=== PATIENT | female | born 1935 | race Caucasian/White ===

== ENCOUNTER 2017-02-22 17:22 | Observation (INO) ==
[2017-02-22] MEDS ORDERED: HYDROcodone/APAP 5/325MG TABLET PO PRN (18:22)
[2017-02-22] MEDS ORDERED: traMADol 50 MG TABLET PO PRN (18:23)
[2017-02-22] MEDS: PREGABALIN 25 MG CAPSULE PO SCH (19:55)
--- NOTE | 2017-02-23 06:30 | History and Physical Report ---
DATE OF ADMISSION: 02/22/2017 This is an admit for observation note. CHIEF COMPLAINT: Right leg pain. HPI: Ms. Amada Stapleton is an 81-year-old woman who was seen today at interventional pain clinic and given a right paramedian lumbar epidural steroid injection. She tolerated the procedure well but postoperatively complained of increased right hip pain exacerbated by movement. She was observed for about 3 hours and it appeared she may have a right hip fracture. PA of the pelvis and right hip was negative for fracture. She was observed further, given additional IV fentanyl and Lyrica for the pain she complained of. She experienced exacerbation of her pain with standing and ambulating and any movement. It became apparent that she needed observation as we will be unable to discharge her to home. ALLERGIES: NONE KNOWN. HOME MEDICATIONS: Tramadol 50 mg 1 every 4 hours as needed. Naproxen 500 mg twice daily. Travatan Z 0.004 percent eye drops. PAST MEDICAL HISTORY: This is remarkable in that the patient has a history of recurrent urinary tract infections and at times had sepsis with confusion, weakness, etc. She also has had some cardiac irregularity in the past and she has a Reveal XT monitor implanted. Her history is also positive for glaucoma, anxiety, and depression as well as some early dementia. PAST SURGICAL HISTORY: Positive for air sampling and monitoring implant, bilateral total knee replacements done approximately 10 years ago, hand surgery. REVIEW OF SYSTEMS: Positive for a history of glaucoma; recurrent bladder, kidney infections; arthritis; osteoporosis; difficulty with walking and balance; anxiety and depression. 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 PHYSICAL EXAM: VITAL SIGNS: She is 5 feet 2, approximately 158. Pulse 82, blood pressure 140/80. CONSTITUTIONAL: She is a pleasant woman, who is well-kept and articulate. She is able to stand and ambulate with a walker with assistance but not independently as before. PSYCHAITRIC: She is alert. She answers questions but has some memory deficits consistent with early onset dementia. ENT: Noncontributory. CHEST: Remarkable in that her lungs are clear to auscultation. CV: Remarkable for faint heart sounds with a regular rhythm. EXTREMITIES: Remarkable for some lower extremity edema. BACK: Her back on exam is negative for scar. Palpation is remarkable for some minor tenderness. Nothing focal. She has some tenderness over the right sciatic notch and left, as well, which is approximately equivalent. Internal and external rotation of the right hip, hip flexion and extension all exacerbate her pain. NEUROLOGIC: Motor examination is remarkable in that plantarflexion dorsiflexion at the ankle is 5/5 bilaterally. Flexion and extension at the knee is somewhat weak on the right compared to the left and this seems associated with pain. She is able to flex her right hip. She has probable 4/5 weakness there also associated with pain. Strength 5/5 on left side. Her deep tendon reflexes are symmetrically diminished. Her sensation is remarkable in that her sensation is symmetric across the anterior and lateral aspects of the upper and lower legs. DIAGNOSTIC STUDIES: She had hip films and AP of the pelvis, which is negative for fracture. IMPRESSION: This is an 81-year-old woman with chronic right leg pain thought to be radiculitis. She had a lumbar epidural steroid injection 3 weeks ago with improvement. A second was done today, and postoperatively, she has complained of some burning right leg pain. She has no severe motor deficits. Over the last 3 hours, this has not been progressive. However, she is unable to stand, ambulate and complains of this pain. PLAN: My plan is to admit her for observation. We started Lyrica 50 mg by mouth twice daily and will continue her tramadol 50 mg every 4 hours. If she has severe pain, add hydrocodone 5/325. She will be reevaluated in a.m. LES:mg Job ID: [id number] Doc ID: [id number] Anthony [facility]
[2017-02-23] MEDS: PREGABALIN 25 MG CAPSULE PO SCH ×3 (08:58→20:41)
[2017-02-23 11:50] LABS: Basophils # (Auto) 0 K/mcL (0.0-0.3); Basophils % (Auto) 0.3 % (0.0-2.0); Eosinophils # (Auto) 0 K/mcL (0.0-0.7); Eosinophils % (Auto) 0.4 % (0.0-7.0); Granulocytes % (Auto) 80.4 % (38.0-78.0); Lymphocytes # (Auto) 0.9 K/mcL (1.5-4.8); Lymphocytes % (Auto) 11.6 % (15.5-49.0); Mean Cell Volume 96.5 fL (80.0-100.0); Mean Corpuscular HGB Conc 34.5 g/dL (31.0-36.0); Mean Corpuscular Hemoglobin 33.3 pg (26.0-34.0); Monocytes # (Auto) 0.6 K/mcL (0.1-0.9); Monocytes % (Auto) 7.3 % (1.0-12.0); Platelet Count 199 K/mcL (140-440); RBC 4.11 M/mcL (4.00-5.20); Red Cell Distribution Width 14.3 % (11.5-14.5)
--- NOTE | 2017-02-23 12:21 | Progress Note ---
DATE OF VISIT 02/23/2017 HISTORY OF PRESENT ILLNESS: The patient continued to have severe pain overnight. She seems to have progressed in that now getting up is extremely difficult. She complains of pain in her right hip and groin, extending down the leg to the knee and some to the medial aspect of the calf. She has been given Lyrica 50 mg last night and this morning. She has received hydrocodone 5/325 mg and Ultram 50 mg. Despite that, she still continues to have pain and it is very difficult to get her up to the bathroom. She is comfortable, or relatively so, lying horizontal. PHYSICAL EXAM: GENERAL: She is comfortable, horizontal, but any attempt to elevate or manipulate her right leg causes significant exacerbation of pain. VITAL SIGNS: Within normal limits with exception of systolic blood pressure in the 170s this morning. EXTREMITIES: Straight leg raise on the right or any manipulation of her right leg exacerbates her pain. She does now have a sensory deficit over the anterior aspect of the right leg and milder deficit over the medial aspect of the villalba on the right compared to the left. Plantar flexion and dorsiflexion at the ankle and dorsiflexion EHL are 5/5. It is difficult to assess at the knee or hip as the pain is exacerbated. DTRs remain symmetrically diminished. IMPRESSION: Right lumbar radiculopathy with marked flare post right paramedian lumbar epidural steroid injection. She has developed a sensory deficit. This warrants MRI investigation. PLAN: 1. My plan is to get a lumbar MRI. The only complication is that she has a Reveal entry level machine operator placed over the left chest, which is MR conditional. I spoke with the MR scale technician who will investigate that and she will likely have an MR later in the day. 2. We will increase her Lyrica to 50 mg t.i.d. 3. She gets confused with #4 tramadol in 24 hours by history, so we will use hydrocodone 5/325 mg 1 q.4h. p.r.n. 4. We will add naproxen 500 mg b.i.d., which she has been on chronically. 5. We will start her travoprost eye drops once per day. 6. She has a history of urinary tract infection in the past and sepsis, so we will get urine analysis, straight cath and culture if appropriate. 7. We will start 50 mL per hour half normal saline IV for some hydration and continue to encourage her to take fluids p.o. 8. We will view her MRI later in the day. LES:emily Job ID: [id number] Doc ID: [id number] Anthony Castaneda MD
[2017-02-23] MEDS: HYDROcodone/APAP 5/325MG TABLET PO PRN ×3 (13:02→20:41)
--- NOTE | 2017-02-23 13:05 | Magnetic Resonance Report ---
CLINICAL INFORMATION: Acute exacerbation of back pain and right L3-4 radiculopathy COMPARISON: None. TECHNIQUE: Sagittal T1 FLAIR, STIR, fast spin echo T2, axial T2 weighted images were acquired. FINDINGS: There is 3 mm of L3 anterior subluxation due to degenerative facet disease. Mild idiopathic levoscoliotic curve is also appreciated. Severe chronic T12 compression fracture is anatomically aligned. No other marrow signal abnormalities. Conus medullaris ends at T12 homogeneous signal. Cauda equina roots are normal. Soft tissues show multiple bilateral parapelvic cysts - more severe on the right The T11-T12 and T12-L1 disc levels are normal. At L1-2, mild broad disc protrusion with right-sided asymmetry, moderate right and mild left facet arthropathy combine to result in severe right L1 IV foraminal narrowing impinging the exiting right L1 nerve root. Mild central canal stenosis. At L2-3, moderate broad disc protrusion with right-sided asymmetry and facet arthropathy result in mild central canal and moderate right IV foraminal narrowing with possible impingement of the exiting right L2 nerve root. At L3-4, moderate broad disc protrusion with right-sided asymmetry, grade 1 spondylolisthesis and facet arthropathy combine to result in severe central canal, right lateral recess and right IV foraminal narrowing with moderate left lateral recess and IV foraminal narrowing. There is marked impingement of the exiting right L3 and descending right L4 nerve roots. There is no evidence of epidural hemorrhage or other complication at this level from recent injection. At L4-5, moderate broad disc spur complex with left-sided asymmetry and facet arthropathy result in moderate central canal, mild bilateral IV foraminal narrowing and moderate right lateral recess narrowing with probable impingement of the descending right L5 nerve root. Slight impingement exiting left L4 nerve root in the IV foramen. No evidence of epidural hemorrhage or other complication at this level from recent injection At L5-S1, moderate broad disc protrusion with left-sided asymmetry and facet arthropathy result in moderate right IV foraminal narrowing and slight impingement exiting right L5 nerve root. Central canal is slightly narrowed. IMPRESSION: 1. Multilevel degenerative change resulting in central canal, lateral recess and IV foramen at the levels described - most severe at L3-4. There is no evidence of hemorrhage or other complication from recent epidural steroid injection. 2. Severe chronic T12 compression fracture - anatomic alignment Interpreted and Authenticated by: Farhad Santoro 02/23/17
--- NOTE | 2017-02-23 13:27 | Progress Note ---
DATE OF VISIT 02/23/2017 The patient had a lumbar MRI and was found to have severe central canal stenosis at L4-L5 with severe neural foraminal stenosis on the right as well. She has severe neural foraminal stenosis at L2-L3 and multiple other findings. There are no signs of epidural hematoma or other trauma evident. Patient was straight cathed for 1400 mL. By history she has had a history of urinary tract infections and sepsis in the past. Her daughter states she has a large bladder capacity and has for years. However, she is uncertain if she has had urinary retention chronically. I discussed with the daughter extensively the fact that this pain is increased and hopefully in the next few days she will improve. We are increasing her Lyrica. We have switched her to hydrocodone. We will rest her bladder with a Potter catheter. I recommended we pursue a surgical consult and she agreed. LES:anthony Job ID: [id number] Doc ID: [id number] Anthony Castaneda MD [facility]
[2017-02-23 13:38] LABS: Appearance,Urine CLEAR; Bacteria,Urine 0 /hpf (0); Bilirubin,Urine NEG (NEG); Color,Urine YELLOW; Glucose,Urine (UA) NEGATIVE (NEG); Leukocyte Esterase,Urine 25 /uL (NEG); Mucus,Urine FEW /hpf (0); Nitrate,Urine NEG (NEG); Protein,Urine NEG (NEG); Urine Blood NEG mg/dL (<0.03); Urine RBC 0 /hpf (0-1); Urine Squamous Epithelial Cell < 1 /hpf (0-4); Urine WBC 9 /hpf (0-4); Urobilinogen,Urine NEG (NEG)
[2017-02-23] MEDS: 0.45 % SODIUM CHLORIDE 1,000 ML IV SCH (15:30)
[2017-02-23] MEDS: NAPROXEN 250 MG TABLET PO SCH (17:06)
[2017-02-23] MEDS: SULFAMETHOXAZOLE/TRIMETHOPRIM 1 TABLET PO SCH (20:41)
[2017-02-23] MEDS ORDERED: TRAVOPROST OPHTH DROPS BOTTLE 2.5ML OD SCH (21:00)
[2017-02-24] MEDS: NAPROXEN 250 MG TABLET PO SCH (07:48)
[2017-02-24] MEDS: 0.45 % SODIUM CHLORIDE 1,000 ML IV SCH ×2 (07:54→16:17)
[2017-02-24] MEDS: PREGABALIN 25 MG CAPSULE PO SCH ×3 (08:21→20:16)
[2017-02-24] MEDS: SULFAMETHOXAZOLE/TRIMETHOPRIM 1 TABLET PO SCH ×2 (08:21→20:16)
[2017-02-24] MEDS ORDERED: ceFAZolin 1 GM VIAL IV SCH (12:00)
[2017-02-24] MEDS ORDERED: GLYCOPYRROLATE 0.2 MG/ML VIAL IV ONE (12:25)
[2017-02-24] MEDS ORDERED: NEOSTIGMINE 1 MG/ML VIAL IV ONE (12:25)
[2017-02-24] MEDS ORDERED: PROPOFOL 200 MG/20 ML VIAL IV ONE (12:25)
[2017-02-24] MEDS ORDERED: ONDANSETRON 4 MG/2 ML VIAL IV ONE (12:25)
[2017-02-24] MEDS ORDERED: KETAMINE 100 MG/ML ML IV ONE (12:25)
[2017-02-24] MEDS ORDERED: PHENYLEPHRINE 10 MG/ML VIAL IV ONE (12:25)
[2017-02-24] MEDS ORDERED: MIDAZOLAM 2 MG/2 ML VIAL IV ONE (12:25)
[2017-02-24] MEDS ORDERED: fentaNYL 100 MCG/2 ML VIAL IV ONE (12:25)
[2017-02-24] MEDS ORDERED: LIDOCAINE HCL/PF 100 MG/5 ML SYRINGE IV ONE (12:25)
[2017-02-24] MEDS ORDERED: GELATIN SPONGE,ABSORBABLE 1 EACH SPONGE TOPICAL ONE (13:12)
[2017-02-24] MEDS ORDERED: THROMBIN (BOVINE) 5,000 UNIT VIAL TOPICAL ONE (13:12)
[2017-02-24] MEDS ORDERED: GELATIN SPONGE,ABSORBABLE 1 GM POWDER TOPICAL ONE (13:12)
--- NOTE | 2017-02-24 13:23 | Consultation ---
DATE OF CONSULTATION: 02/24/2017 IDENTIFICATION: The patient is an 81-year-old female. CHIEF COMPLAINT: Right lower extremity radicular pain. HISTORY: The patient has had progressive radicular pain and claudication over the last several years. She has developed increasing pain and disability and limitation in her walking. She ultimately was managed through the pain clinic with epidural steroid injections. She had her first epidural steroid injection about 3 to 4 weeks ago, and after several days she had improvement in her radicular pain and was able to walk in an improved fashion. She then had a second epidural steroid injection on . She had increased pain, specifically down the right lower extremity, such that she was unable to bear weight and was admitted for pain management. She then had increased bladder residuals and I was called yesterday afternoon/evening by Dr. Castaneda. Unfortunately, I was unavailable at that initial call, but he felt that she was stable to wait for consultation today. On presentation today, she has excruciating right lower extremity radicular pain. If she is lying flat, she is fairly comfortable but any other positioning, she has marked right lower extremity radicular pain. She does deny bowel dysfunction, but she has had apparently recurrent UTIs and again had a large residual in her bladder when checked by nursing on this admission. PAST MEDICAL HISTORY: Significant for urinary tract infections with apparently a history of urosepsis, history of glaucoma and some early dementia. She has also had cardiac rhythm irregularity. PAST SURGICAL HISTORY: She has had bilateral total knee arthroplasties and has had a previous corporate communications associate implant. SOCIAL HISTORY: She is retired. She moved from [place] and lives in [facility]. Her daughter is very involved. MEDICATIONS: Tramadol. Naproxen. Travatan. ALLERGIES: NONE. REVIEW OF SYSTEMS: The balance of 10-point review of systems has been negative and is really noncontributory to this present admission. EXAMINATION: She is awake and alert and actually quite comfortable when resting on her back. She denies significant dysesthesias, paresthesias at present. She does have weakness of her right tibialis anterior and her quadriceps. Her left: She also has some tibialis anterior weakness. Her radicular pain follows roughly an L4 dermatome. Sensation, although vaguely diminished, is grossly intact. She does have perirectal sensation. She was positioned to do a rectal exam, but her pain was such that we elected to forego this as we felt this would not change our plan to go ahead and proceed with recommending surgical intervention. Her MRI scan does demonstrate severe stenosis and some low-grade instability. IMPRESSION: Severe right lower extremity radicular pain and weakness. We have reviewed treatment options. Will plan to proceed with a decompression. We did discuss that there is potential that a fusion at some point might be required, but it is appropriate to see if we can get away with a lesser surgery. The risks, complications, and limitations have been reviewed. Will plan to proceed with an L3-4 decompression. GDD:enrique Job ID: [id number] Doc ID: [id number] Farooq Becerra MD
--- NOTE | 2017-02-24 14:32 | Brief Operative Note ---
Date of procedure: 02/24/17 Pre-op diagnosis: stenosis Post-op diagnosis: same Procedure: lumbar decompression Grafts/Implants: No Anesthesia: GETA Findings: stenosis Complications: none Surgeon: Farooq Becerra Tray Drier Operator: Farooq Matta Estimated blood loss (cc): 50 Specimens Removed/Pathology: none sent Condition: stable Disposition: PACU
[2017-02-24] MEDS ORDERED: IPRATROPIUM/ALBUTEROL 3 ML AMPUL.NEB NEB PRN (14:43)
[2017-02-24] MEDS ORDERED: BENZOCAINE/MENTHOL 1 LOZENGE PO PRN ×2 (14:43→15:13)
[2017-02-24] MEDS ORDERED: HYDROmorphone 2 MG/ML SYRINGE IV PRN (14:43)
[2017-02-24] MEDS ORDERED: METOPROLOL TARTRATE 5 MG/5 ML VIAL IV PRN (14:43)
[2017-02-24] MEDS ORDERED: fentaNYL 100 MCG/2 ML VIAL IV PRN (14:43)
[2017-02-24] MEDS ORDERED: KETOROLAC 15 MG/ML VIAL IV PRN (14:43)
[2017-02-24] MEDS ORDERED: METHOCARBAMOL 1,000 MG/10 ML VIAL IV PRN (14:43)
[2017-02-24] MEDS ORDERED: MEPERIDINE 25 MG/ML SYRINGE IV PRN (14:43)
[2017-02-24] MEDS ORDERED: ACETAMINOPHEN 1,000 MG/100 ML BOTTLE IV ONE (14:43)
[2017-02-24] MEDS ORDERED: LACTATED RINGERS 1,000 ML IV SCH (14:45)
[2017-02-24] MEDS ORDERED: BUPIVACAINE 0.25% 50 ML VIAL IJ ONE (14:49)
[2017-02-24] MEDS ORDERED: ONDANSETRON ODT 4 MG TABLET SL PRN (15:13)
[2017-02-24] MEDS ORDERED: METHOCARBAMOL 750 MG TABLET PO PRN (15:13)
[2017-02-24] MEDS ORDERED: HYDROcodone/APAP 5/325MG TABLET PO PRN (15:13)
[2017-02-24] MEDS: ceFAZolin 1 GM VIAL IV SCH (20:15)
[2017-02-24] MEDS: TRAVOPROST OPHTH DROPS BOTTLE 2.5ML OD SCH (20:16)
[2017-02-25] MEDS: ceFAZolin 1 GM VIAL IV SCH ×2 (03:57→17:23)
[2017-02-25] MEDS: PREGABALIN 25 MG CAPSULE PO SCH ×3 (08:01→20:30)
[2017-02-25] MEDS: traMADol 50 MG TABLET PO PRN (08:01)
[2017-02-25] MEDS: SULFAMETHOXAZOLE/TRIMETHOPRIM 1 TABLET PO SCH ×2 (08:02→20:30)
[2017-02-25] MEDS: 0.45 % SODIUM CHLORIDE 1,000 ML IV SCH (11:20)
--- NOTE | 2017-02-25 11:35 | Orthopedic Progress Note ---
Orthopedics - Auxillary Note - Subjective Patient Information: Note initiated : 02/25/17 at 11:34 am Service Date, if different from initiated Date: [] Patient: Amada Stapleton 81 y/o F admitted on 02/22/17 for Post Operative Pain Control. Chief Complaint: mild pain and confusion. bandages c/d/i nvi-distal Vital Signs Temp Pulse Pulse Resp BP Pulse Ox 02/25/17 11:14 97.5 F 16 136/84 95 02/25/17 06:44 96.5 F L 16 125/78 96 02/25/17 04:00 97.9 F 85 12 115/70 96 02/25/17 00:00 97.5 F 82 14 113/72 95 02/24/17 20:00 97.9 F 87 14 111/73 94 02/24/17 17:15 129/86 97 02/24/17 16:45 18 162/88 98 02/24/17 16:22 77 16 96 02/24/17 16:15 16 171/74 97 02/24/17 16:00 161/77 98 02/24/17 15:45 166/78 98 02/24/17 15:30 96.7 F L 14 158/76 96 02/24/17 15:16 97.0 F 60 16 151/57 97 02/24/17 15:11 96.5 F L 57 L 16 151/57 97 02/24/17 15:07 97.9 F 58 L 11 L 148/67 97 02/24/17 15:01 97.9 F 57 L 11 L 149/73 97 02/24/17 14:56 97.9 F 63 11 L 122/75 97 02/24/17 14:51 97.9 F 63 11 L 158/74 100 02/24/17 14:46 97.9 F 63 11 L 151/75 100 Intake and Output 02/24/17 02/25/17 02/25/17 21:59 05:59 13:59 Intake Total 220 / 220 225 / 225 360 / 360 Output Total 2770 / 2770 615 / 615 Balance -2550 / -2550 -390 / -390 350 / 350 Intake: IV 100 / 100 Oral 120 / 120 225 / 225 360 / 360 Output: Drainage 120 / 120 65 / 65 Lower Medial Back YARELIS Drain 120 / 120 65 / 65 Urine Catheter Amount 1450 / 1450 550 / 550 Void Amount 1200 / 1200 Other: Meal Dinner Breakfast Percent of Meal Consumed 80% 100% Feeding Ability Assist with Tray Set Up Weight 157 lb 8 oz 157 lb 8 oz Patient Weight 02/26/17 05:59 Weight 157 lb 8 oz s/p lumbar decompression-stable Pt will discharge to home tomorrow with Home Health Mobilize with PT
--- NOTE | 2017-02-25 11:37 | Discharge Summary ---
Providers - Providers Patient information: Note initiated : 02/25/17 at 11:35 am Service Date, if different from initiated Date: [] Patient: Amada Stapleton 81 y/o F admitted on 02/22/17 for Post Operative Pain Control. Chief Complaint: [] Discharge date: 02/26/17 Hospitalization Hospital course: Pt was admitted for a lumbar decompression for concern for cuada equina syndrome. She underwent the procedure on the day of admission and was admitted for observation. She spent 2 night on the floor for pain mangament and PT. She was discharged to home with Home health. She should f/u with her PCP for possible bladder scan to asses if her bladder function is improving. Discharge diagnosis: Lumbar pain with possible cuada equina syndrome, neurogenic bladder Exam - Exam Clean and dry: Yes Weight bearing status: as tolerated Ortho Discharge - Spine - Patient Instructions Discharge Diet: Regular Diet Activity: activity as tolerated Spine Protocol: Limit bending and stooping. No heavy lifting. Wear brace/collar at all times except when showering and sleeping. Dressing Care: May shower in 2 days Additional Dressing Instructions: May Shower 48 hours post-operative and replace with dry dressing after shower. - Follow Up Plan Disposition: Home, Self-Care Prognosis: Good Rehab Potential: Good Overall status at discharge: patient is progressing back to baseline Pending Studies Resuscitation Status Full Code Diet Regular Diet Start Sat Feb 24 Dinner Sodium Chloride (Sodium Chloride 0.45%) 1,000 mls @ 50 mls/hr IV .Q20H [facility] Last Admin: 02/25/17 11:20 Dose: Admin: 02/24/17 16:17 Dose: 50 mls/hr Pregabalin (Lyrica) 50 mg PO TID [facility] Last Admin: 02/25/17 08:01 Dose: 50 mg Admin: 02/24/17 20:16 Dose: 50 mg Tramadol HCl (Ultram) 50 mg PO Q4-6HP PRN PRN Reason: Pain Last Admin: 02/25/17 08:01 Dose: 50 mg Travoprost (Travatan Z Ophth Drops) 1 gtt OD HS [facility] Last Admin: 02/24/17 20:16 Dose: Not Given Trimethoprim/Sulfamethoxazole (Bactrim Ds) 1 tab PO BID [facility] Last Admin: 02/25/17 08:02 Dose: 1 tab Admin: 02/24/17 20:16 Dose: 1 tab Shift Summary 02/25/17 04:29 Shift Summary by Irma Duke Patient oriented to self and place. VSS. MIV to LFA with 1/2 NS at 50 ml/hr. Patient denies any pain or discomfort after lumbar decompression procedure. Patient did not get out of bed this shift but was able to lift legs and bend knees without any pain or discomfort. Dressing to back is CDI with YARELIS drain in place. MD order to charge YARELIS for 20 min. Q2H and document YARELIS output Q4H. Potter is patent and draining clear, pale colored urine that does have a strong odor. Will update at bedside. Initialized on 02/25/17 04:29 - END OF NOTE
[2017-02-25] MEDS: TRAVOPROST OPHTH DROPS BOTTLE 2.5ML OD SCH (20:30)
[2017-02-26] MEDS: ceFAZolin 1 GM VIAL IV SCH ×2 (00:49→08:29)
--- NOTE | 2017-02-26 06:57 | Orthopedic Progress Note ---
Subjective Patient information: Note initiated : 02/26/17 at 6:55 am Service Date, if different from initiated Date: [] Patient: Amada Stapleton 81 y/o F admitted on 02/22/17 for Post Operative Pain Control. Chief Complaint: [] Principal diagnosis: spinal stenosis Objective Vital signs: Vital Signs Temp Pulse Resp BP Pulse Ox 02/26/17 06:17 97.7 F 18 135/79 95 02/26/17 03:30 97.5 F 70 14 128/73 94 02/26/17 00:00 97.7 F 77 14 117/72 95 02/25/17 19:14 98.1 F 84 14 128/71 94 02/25/17 15:32 97.9 F 18 141/69 95 02/25/17 11:14 97.5 F 16 136/84 95 Intake and Output 02/25/17 02/26/17 02/26/17 21:59 05:59 13:59 Intake Total 500 / 500 Output Total 2160 / 2160 1603 / 1603 Balance -2160 / -2160 -1103 / -1103 Intake: Oral 500 / 500 Output: Drainage 10 / 10 3 / 3 Lower Medial Back YARELIS Drain 10 / 10 3 / 3 Urine Catheter Amount 1250 / 1250 1600 / 1600 Void Amount 900 / 900 Uretheral (Potter) 900 / 900 Other: Weight 161 lb 8 oz Intake & Output: Intake & Output 02/25/17 02/26/17 02/26/17 21:59 05:59 13:59 Intake Total 500 / 500 Output Total 2160 / 2160 1603 / 1603 Balance -2160 / -2160 -1103 / -1103 Weight 161 lb 8 oz Intake: Oral 500 / 500 Output: Drainage 10 / 10 3 / 3 Lower Medial Back YARELIS Drain / 10 3 / 3 Urine Catheter Amount 1250 / 1250 1600 / 1600 Void Amount 900 / 900 Uretheral (Potter) 900 / 900 Dressing: Yes clean, Yes dry Weight bearing status: full - Labs CBC & BMP: 02/23/17 11:20 Labs: 02/23/17 11:20 Hgb 13.7 Hct 39.7 Assessment and Plan (1) Stenosis, spinal, lumbar status post lumbar decompression. continue to mobilize, anticipate d/c Status: Acute
[2017-02-26] MEDS: traMADol 50 MG TABLET PO PRN (08:30)
[2017-02-26] MEDS: PREGABALIN 25 MG CAPSULE PO SCH (08:30)
[2017-02-26] MEDS: SULFAMETHOXAZOLE/TRIMETHOPRIM 1 TABLET PO SCH (08:31)
[2017-02-26] MEDS: 0.45 % SODIUM CHLORIDE 1,000 ML IV SCH (11:52)
--- NOTE | 2017-03-21 07:48 | Operative Note ---
DATE OF OPERATION: 02/22/2017 PREOPERATIVE DIAGNOSIS: L3-L4 stenosis with developing Cauda equina syndrome. POSTOPERATIVE DIAGNOSIS: L3-L4 stenosis with developing Cauda equina syndrome. OPERATION PROPOSED: Lumbar decompression with decompressed central canal, lateral recess, and opening of the neural foramen L3-L4. OPERATION PERFORMED: Lumbar decompression with decompressed central canal, lateral recess, and opening of the neural foramen L3-L4. OPERATING SURGEON: Farooq Becerra MD WAITER/WAITRESS BAR: Farooq Matta PA-C. INDICATIONS: This is a lady who has had absolutely debilitating radicular pain and she has developed some urinary retention. She has very severe stenosis. We have discussed possibility of the decompression and fusion versus a decompression alone and we have elected to proceed with lumbar decompression L3-L4. OPERATION IN DETAIL: Informed consent was obtained. She was taken to the operating room where she was carefully positioned. Her back was prepped sterilely. Midline incision was made centered over the L3-L4 interspace. I then brought in the operating microscope. I dissected down along the spinous process and lamina of L3 and L4-L6. Self-retaining retractor was applied. I removed the inferior one half of the spinous process and lamina of L3 and the superior portion of L4. I debrided the hypertrophied ligamentum flavum. I then worked my way laterally out into the lateral recess. I debrided the hypertrophied medial border of the facet joint, opening the neural foramen bilaterally and debrided any material causing neural compression. At the end of the decompression, the central canal, lateral recess, and opening of the neural foramen at L3-L4 was very adequately decompressed. The wounds were irrigated thoroughly. Hemostasis was obtained. I closed over a deep drain with an 0 Vicryl in interrupted fashion, 2-0 Vicryl inverted deep dermal, and running subcuticular. The procedure was tolerated well. No complications. Estimated blood loss is 50 mL. GDD:emily Job ID: [id number] Doc ID: [id number] Farooq Becerra MD
== END 2017-02-26 12:53 | disposition home or self-care (01) ==
LOC: MEDSUR
PROVIDERS: ADMIT Pain Medicine Interventional Pain Medicine; ATTEND Orthopaedic Surgery Orthopaedic Surgery of the Spine
PROC: LUMDECF (ICD-10-PCS; 2017-02-24 12:16)